=== PATIENT | male | born 2000 | race African-American/Black ===

== ENCOUNTER 2022-02-14 13:21 | Emergency (ER) | payer OTHER, SELFPAY ==
--- NOTE | ~2022-02-14 | XR_ITS ---
EXAMINATION: XR chest 1V CLINICAL INFORMATION: Reason for Exam fever and cough COMPARISON: None TECHNIQUE: One view of the chest FINDINGS: Clear lungs. No pneumothorax or pleural effusion. Normal cardiomediastinal silhouette. XR/XR chest 1V IMPRESSION: * Clear lungs.
--- NOTE | 2022-02-14 15:04 | ED_ITS ---
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 No photophobia, no neck stiffness. <Olegario Shin MD - Last Filed: 02/14/22 18:31> Related Data Home medications: Previous Rx's Medication Instructions Recorded oseltamivir 75 mg capsule (Tamiflu) 75 mg PO BID 5 days #10 caps 02/14/22 <PILO Benavides - Last Filed: 02/14/22 15:08> Allergies/adverse reactions: Allergies Allergy/AdvReac Type Severity Reaction Status Date / Time No Known Allergies Allergy Verified 02/14/22 15:08 <PILO Benavides - Last Filed: 02/14/22 15:08> Review of Systems Review of Systems: All other systems are reviewed and are negative Constitutional: Reports as per HPI and Reports no additional constitutional complaints Eyes: Reports as per HPI and Reports no additional eye complaints Reports system reviewed and no additional complaints, except as documented Cardiovascular: Reports as per HPI and Reports no additional cardiovascular complaints Respiratory: Reports as per HPI and Reports no additional respiratory complaints Gastrointestinal: Reports as per HPI and Reports no additional gastrointestinal complaints Genitourinary: Reports no additional female genitourinary complaints Musculoskeletal: Reports no additional musculoskeletal complaints Skin/Breast: Reports system reviewed and no additional complaints, except as docu Psychiatric: Reports no additional psychiatric complaints Endocrine: Reports no additional endocrine complaints Hematologic/Lymphatic: Reports no additional hematologic/lymphatic complaints Allergic/Immunologic: Reports no additional allergic/immunologic complaints Reports system reviewed and no additional complaints, except as documented and Reports Abnormal speech present <Olegario Shin MD - Last Filed: 02/14/22 18:31> [facility] Social History Social History: Social History Advance Directives: No Advance Directives Information Provided: No <PILO Benavides - Last Filed: 02/14/22 15:08> Physical Exam ED Vital Signs: Vital Signs - 24 hr 02/14/22 15:05 02/14/22 17:24 02/14/22 18:21 Temperature 103.1 F H 103.2 F H 100.2 F Pulse Rate 123 H Respiratory Rate 16 Blood Pressure 136/77 Pulse Oximetry 98 Oxygen Delivery Method Room Air BMI result Body Mass Index 28.8 <PILO Benavides - Last Filed: 02/14/22 15:08> Vital Signs - 24 hr 02/14/22 15:05 02/14/22 17:24 02/14/22 18:21 Temperature 103.1 F H 103.2 F H 100.2 F Pulse Rate 123 H Respiratory Rate 16 Blood Pressure 136/77 Pulse Oximetry 98 Oxygen Delivery Method Room Air BMI result Body Mass Index 28.8 Vital signs have been reviewed as appeared to be correct. Blood pressure normal. Heart rate normal. Respiration rate normal. Temperature normal. Oxygen saturation normal. <Olegario Shin MD - Last Filed: 02/14/22 18:31> Appearance: Alert. Oriented X3. No acute distress. Head: Normal external exam. Normocephalic. Atraumatic. No Hughes signs noted. No raccoon eyes noted Eyes: PERRLA. EOMI. Conjunctiva and sclera normal. Eyelids normal. ENT: TM's Normal. Pharynx normal. Uvula midline. Moist mucous membranes. No trismus noted. No drooling noted. No muffled voice noted. Neck: Normal inspection. Neck supple. FROM. No adenopathy. Thyroid Normal. No meningeal signs. No neck mass noted. CVS: Normal heart rate and rhythm. Heart sound normal. No murmurs noted. Pulses normal throughout. Respiratory: No respiratory distress. Painless inspiration. Breath sounds normal. No wheezes/rales/rhonchi noted. Chest nontender. No accessory muscle usage noted or decreased air movement noted. Abdomen: Soft and nontender. Bowel sounds normal in all 4 quadrants. No distention noted. No organomegaly noted. No visible injury noted. Back: No CVA tenderness. Full range of motion noted. Skin: Skin warm and dry. Normal skin color. Normal skin turgor. No rashes/lesions/lacerations noted. Extremities: No lower extremity edema. Extremities exhibit normal range of motion. Extremities nontender. Neuro: Oriented X 3. Cranial nerve exam: II-XII are grossly intact No motor deficit. No sensory deficit. Reflexes normal. <Olegario Shin MD - Last Filed: 02/14/22 18:31> Course Course Course Narrative: RME - 21 yo male [place] student presents to the ER with worsening flu-like symptoms for the last 3 days including cough, headaches, body aches and fevers. Difficulty sleeping and breathing last night due to congestion and coughing. Temp 103 on arrival with HR 110s, dry cough. Otherwise appears nontoxic. Given Tylenol in triage. Will check COVID and Flu swabs. <PILO Benavides - Last Filed: 02/14/22 15:08> Reevaluation(s) Reevaluation #1: Flu-like symptoms initially patient tested negative for flu repeats nasal swab is positive for influenza A sepsis workup was initiated before the result for the flu, patient will receive IV fluids, temperature and headache is better with Tylenol and ibuprofen in the ED, will discharge with Tamiflu. <Olegario Shin MD - Last Filed: 02/14/22 18:31> Medications Administered Generic Name Dose Route Start Last Admin Trade Name Freq PRN Reason Stop Dose Admin Sodium Chloride 2,653.53 mls @ 2,653.53 mls/hr 02/14/22 17:46 02/14/22 18:14 Ns 30 ml/kg infuse over 1 hr (2653.53 ml) 02/14/22 18:45 2,653.53 mls/hr IV Administration .Q1H STA Discontinued Medications Generic Name Dose Route Start Last Admin Trade Name Freq PRN Reason Stop Dose Admin Acetaminophen 975 mg 02/14/22 15:09 12/11/22 15:11 Acetaminophen 325 Mg Tablet PO 02/14/22 15:10 975 mg ONCE ONE Administration Acetaminophen 650 mg 02/14/22 17:12 02/14/22 17:18 Acetaminophen 325 Mg Tablet PO 02/14/22 17:13 Not Given ONCE ONE Ibuprofen 600 mg 02/14/22 17:46 02/14/22 18:21 Ibuprofen 600 Mg Tablet PO 02/14/22 17:47 600 mg ONCE ONE Administration <PILO Benavides - Last Filed: 02/14/22 15:08> Medications Administered Generic Name Dose Route Start Last Admin Trade Name Freq PRN Reason Stop Dose Admin Sodium Chloride 2,653.53 mls @ 2,653.53 mls/hr 02/14/22 17:46 02/14/22 18:14 Ns 30 ml/kg infuse over 1 hr (2653.53 ml) 02/14/22 18:45 2,653.53 mls/hr IV Administration .Q1H STA Discontinued Medications Generic Name Dose Route Start Last Admin Trade Name Freq PRN Reason Stop Dose Admin Acetaminophen 975 mg 02/14/22 15:09 02/14/22 15:11 Acetaminophen 325 Mg Tablet PO 02/14/22 15:10 975 mg ONCE ONE Administration Acetaminophen 650 mg 02/14/22 17:12 02/14/22 17:18 Acetaminophen 325 Mg Tablet PO 02/14/22 17:13 Not Given ONCE ONE Ibuprofen 600 mg 02/14/22 17:46 02/14/22 18:21 Ibuprofen 600 Mg Tablet PO 02/14/22 17:47 600 mg ONCE ONE Administration <Olegario Shin MD - Last Filed: 02/14/22 18:31> Discharge Plan Discharge Clinical Impression: Influenza <PILO Benavides - Last Filed: 02/14/22 15:08> Patient Disposition: Home, Self-Care <PILO Benavides - Last Filed: 02/14/22 15:08> Instructions: Influenza (ED) <PILO Benavides - Last Filed: 02/14/22 15:08> Additional Instructions: Frequent hand washing/wear your face mask at all times/take [id number] Tylenol or ibuprofen if needed for fever or body ache/self- quarantine for 3-4 days <PILO Benavides - Last Filed: 02/14/22 15:08> Prescriptions: New oseltamivir [Tamiflu] 75 mg capsule 75 mg PO BID 5 Days Qty: 10 0RF <PILO Benavides - Last Filed: 02/14/22 15:08> Referrals: Physician,None [Primary Care Provider] - <PILO Benavides - Last Filed: 02/14/22 15:08> Stand Alone Forms: Work/School Release <PILO Benavides - Last Filed: 02/14/22 15:08>
[2022-02-14 15:05] VITALS: BP 136/77; PULSE 123; RESP 16; TEMP 39.5; O2SAT 98; BMI 28.8
[2022-02-14] MEDS: Acetaminophen 325 MG TABLET 975 MG PO (15:11)
[2022-02-14 16:47] LABS: COVID-19 Test Negative (Negative); IDNOW Serial# 16C4AD1C
[2022-02-14 16:51] LABS: IDNOW Serial# BCCEAD1C; Influenza A Negative (Negative); Influenza B2 Negative (Negative)
[2022-02-14 17:24] VITALS: TEMP 39.6
[2022-02-14 17:33] LABS: Appearance Urine Clear; Color Urine Yellow; Glucose Urine UA Negative (Negative); Leukocyte Esterase Urine Negative (Negative); Nitrite Urine Negative (Negative); PH 6.5 (5.0-9.0); Specific Gravity - Urine >= 1.030 (1.005-1.025); Urine Blood Negative (Negative); Urine Ketones Trace mg/dL (Negative); Urine Protein Trace mg/dL (Neg-Trace)
[2022-02-14 17:42] LABS: Strep A Nucleic Acid Negative (Negative)
[2022-02-14 18:12] LABS: Influenza A PCR POSITIVE (Negative); Influenza B PCR NEGATIVE (Negative); Resp Syncy Virus RNA Qual PCR NEGATIVE (Negative); SARS COV2 PCR INHOUSE NEGATIVE (Negative)
[2022-02-14] MEDS: 0.9 % Sodium Chloride 2,653.53 ML 2653.53 ML IV (18:14)
[2022-02-14 18:19] LABS: MANUAL DIFF FLAG NO
[2022-02-14 18:21] VITALS: TEMP 37.9
[2022-02-14 18:21] LABS: Basophils Percent Auto 0.5 % (0-2); Eosinophils Absolute Auto 0.1 X10*3/uL (0.0-0.4); Eosinophils Percent Auto 1.3 % (0-4); Hematocrit 41.3 % (42.0-52.0); Hemoglobin 13.9 g/dl (14.0-18.0); Imm Gran Abs Auto 0.03 X10*3/uL (0.00-0.03); Imm Gran Pct Auto 0.4 % (0.0-0.4); Lymphocytes Absolute Auto 0.6 X10*3/uL (1.2-4.9); Lymphocytes Percent Auto 7.4 % (20-40); Mean Corpuscular HGB Conc 33.7 g/dl (31.0-36.0); Mean Corpuscular Hemoglobin 29.4 pg (27.0-33.0); Mean Corpuscular Volume 87.3 fL (80.0-98.0); Mean Platelet Volume 9.4 fL (9.4-12.4); Monocytes Absolute Auto 0.9 X10*3/uL (0.1-1.2); Monocytes Percent Auto 10.6 % (2-11); Neutrophils Absolute Auto 6.4 x10*3/uL (2.0-8.3); Neutrophils Percent Auto 79.8 % (45-73); Platelet Count 248 X10*3/uL (160-400); Red Blood Count 4.73 X10*6/uL (4.60-5.80)
[2022-02-14] MEDS: Ibuprofen 600 MG TABLET PO (18:21)
[2022-02-14 18:36] LABS: Lactic Acid 0.8 mmol/L (0.5-2.0)
[2022-02-14 18:43] LABS: Alanine Aminotransferase 27 U/L (0-40); Albumin Level 4.2 g/dL (3.5-5.0); Alkaline Phosphatase 79 U/L (39-117); Anion Gap 13 (12-20); Aspartate Amino Transferase 36 U/L (5-37); Bilirubin Direct 0.3 mg/dL (0.0-0.5); Bilirubin Total 0.9 mg/dL (0.0-1.0); Blood Urea Nitrogen 15 mg/dL (9-16); Calcium 9.2 mg/dL (8.4-10.2); Carbon Dioxide 24 mmol/L (22-29); Chloride 103 mmol/L (96-108); Creatinine Clr Calc Pharmacy 92.5; Estimated Glomerular Filt Rate > 60; Glucose Random 104 mg/dL (60-115); Lipase 15 U/L (8-78); Potassium 4.1 mmol/L (3.3-5.1); Sodium 136 mmol/L (135-145); Total Protein 7.3 g/dL (6.5-8.0)
== END 2022-02-14 19:22 | disposition home or self-care (01) ==
PROVIDERS: Physician Assistant; Emergency Provider Emergency Medicine
DX: J10.1 Influenza due to other identified influenza virus with other respiratory manifestations (principal); R50.9 Fever, unspecified; M79.10 Myalgia, unspecified site; Z20.822 Contact with and (suspected) exposure to COVID-19; Z79.899 Other long term (current) drug therapy
CPT/HCPCS: 0241U; 36415; 71045; 80048; 80076; 81003; 83605; 83690; 85025; 87040; 87076; 87185; 87205; 87502; 87635; 87651; 96360; 99283; 99284